=== PATIENT | male | born 1960 | race Caucasian/White ===

== ENCOUNTER 2022-07-04 10:18 | Day surgery (SDC) | payer MEDICARE, MEDICAID ==
[~2022-07-04] VITALS: Ht 165.1 cm; Wt 106.6 kg
[~2022-07-04 10:18] MED LIST: CEFAZOLIN SOD 2 GM in D5W 50 ML IV ONE
[2022-07-04] MEDS ORDERED: METOCLOPRAMIDE HCL 10 MG/2 ML VIAL ONE (12:34)
[2022-07-04] MEDS ORDERED: SEVOFLURANE 15 MIN GAS INH ONE (12:34)
[2022-07-04] MEDS ORDERED: fentaNYL CITRATE/PF 100 MCG/2 ML AMP ONE (12:34)
[2022-07-04] MEDS ORDERED: MIDAZOLAM HCL 5 MG/5 ML VIAL ONE (12:34)
[2022-07-04] MEDS ORDERED: NS IRRIG SOLN 1000 ML IR ONE (12:34)
[2022-07-04] MEDS ORDERED: ONDANSETRON HCL 4 MG/2 ML VIAL ONE (12:34)
[2022-07-04] MEDS ORDERED: DEXAMETHASONE SOD PHOSPHATE 4 MG/ML VIAL ONE (12:34)
[2022-07-04] MEDS ORDERED: LR 1,000 ML IV.SOLN IV ONE (12:34)
[2022-07-04] MEDS ORDERED: WATER FOR IRRIGATION,STERILE 1,000 ML IRRIG.SOLN IR ONE (12:34)
[2022-07-04] MEDS ORDERED: PROPOFOL 200MG/ 20ML VIAL (DIPRIVAN) IV ONE (12:34)
[2022-07-04] MEDS ORDERED: KETOROLAC TROMETHAMINE 30 MG VIAL ONE (12:34)
[2022-07-04] MEDS ORDERED: ONDANSETRON HCL 4 MG/2 ML VIAL IVP PRN (14:00)
[2022-07-04] MEDS ORDERED: LR 1,000 ML IV SCH (14:00)
[2022-07-04] MEDS ORDERED: KETOROLAC TROMETHAMINE 30 MG VIAL IVP PRN (14:00)
[2022-07-04] MEDS ORDERED: HYDROmorphone 1 MG/ML INJ. CARTRIDGE IVP PRN (14:00)
[2022-07-04 15:19] VITALS: BP_SYST 120
== END 2022-07-04 16:30 | disposition home or self-care (01) ==
LOC: SDS 10:18 → SMU 10:19 → SDS 16:30
PROVIDERS: ATTEND Surgery
DX: I83.813 Varicose veins of bilateral lower extremities with pain (principal); E66.01 Morbid (severe) obesity due to excess calories; M10.9 Gout, unspecified; Z20.822 Contact with and (suspected) exposure to COVID-19; Z68.44 Body mass index [BMI] 60.0-69.9, adult
CPT/HCPCS: 87081; 37722; 36415; 93005; 88304; 87426; J0690; J1100; J1885; J2765; J2250; J2405; J2704; J3010; J7060; J7120